=== PATIENT | male | born 1960 | race Caucasian/White ===

== ENCOUNTER 2018-06-27 13:52 | Inpatient (IN) ==
--- NOTE | 2018-06-26 22:01 | Discharge Summary ---
Date of Encounter: 06/28/18 Time of Encounter: 13:39 - Discharge Diagnosis (1) Mechanical loosening of internal left knee prosthetic joint Priority: Primary Status: Acute Qualifiers: Encounter type: initial encounter Qualified Code(s): T84.033A - Mechanical loosening of internal left knee prosthetic joint, initial encounter (2) Status post revision of total replacement of left knee Priority: Primary Status: Acute (3) CAD (coronary artery disease) Priority: Secondary Status: Chronic Qualifiers: Coronary Disease-Associated Artery/Lesion type: [place] artery [place] vs. transplanted heart: [place] heart Associated angina: without angina Qualified Code(s): I25.10 - Atherosclerotic heart disease of [place] coronary artery without angina pectoris (4) HTN (hypertension) Priority: Secondary Status: Chronic Qualifiers: Hypertension type: essential hypertension Qualified Code(s): I10 - Essential (primary) hypertension (5) HLD (hyperlipidemia) Priority: Secondary Status: Chronic Qualifiers: Hyperlipidemia type: mixed hyperlipidemia Qualified Code(s): E78.2 - Mixed hyperlipidemia (6) NIK (obstructive sleep apnea) Priority: Secondary Status: Chronic (7) Smoker Priority: Secondary Status: Chronic (8) Chronic pain Priority: Secondary Status: Chronic Comments: Continue Morphine pump, will plan to taper off pain medication appropriately Qualifiers: Chronic pain type: other chronic pain Qualified Code(s): G89.29 - Other chronic pain - Hospital Course Hospital course: Mr. Palmer is a 58 year old male ~status post Left TKR Revision - NO KNEE ROM, CATRACHO IN PLACE, TSCOPE IN PLACE - with a history of cad, HTN, HLD, NIK, SMOKER , CHRONIC PAIN (Morphine Pump_ . Patient had uneventful postoperative course. Stable for discharge. Patient seen at bedside, without complaints. A&O x 3 Afebrile, vital signs stable. Vital Signs Temp Pulse Resp BP Pulse Ox 06/28/18 12:38 99.3 F 92 18 117/71 93 06/28/18 06:38 97.6 F 93 18 107/63 92 06/28/18 04:00 98.1 F 94 16 125/72 91 06/28/18 01:30 98.8 F 76 12 122/76 96 06/28/18 00:37 98.0 F 105 16 112/61 92 06/28/18 00:30 98.5 F 90 16 125/72 95 06/27/18 23:30 98.4 F 14 18 114/76 98 06/27/18 23:00 98.2 F 78 16 120/88 96 06/27/18 22:33 97.9 F 96 16 118/72 93 06/27/18 22:30 97.9 F 88 16 112/61 96 06/27/18 22:08 98.6 F 103 16 116/73 93 06/27/18 21:25 98.7 F 90 16 101/62 93 06/27/18 21:15 98.1 F 90 16 105/63 92 06/27/18 21:05 98.1 F 87 16 108/85 93 06/27/18 20:55 86 16 114/69 93 06/27/18 20:45 98.4 F 75 16 102/64 94 06/27/18 20:35 80 16 103/62 93 06/27/18 20:25 82 16 112/69 96 06/27/18 20:15 98.4 F 79 16 125/69 92 06/27/18 20:05 79 16 119/69 93 06/27/18 19:55 73 16 115/67 95 06/27/18 19:45 98.4 F 75 16 116/68 94 06/27/18 19:35 79 18 117/64 94 06/27/18 19:25 85 18 114/104 94 06/27/18 19:15 97.3 F L 75 18 104/64 98 06/27/18 17:08 77 16 101/62 96 06/27/18 16:58 76 16 105/65 95 06/27/18 16:49 78 16 107/68 97 06/27/18 16:45 78 16 115/69 97 06/27/18 16:40 77 16 125/77 100 06/27/18 16:32 81 15 124/70 98 06/27/18 16:26 75 15 118/68 98 06/27/18 14:23 97.7 F 83 18 117/70 95 Intake and Output 06/27/18 06/28/18 06/28/18 23:59 07:59 15:59 Intake Total 100 / 100 Output Total 200 / 200 Balance -200 / -200 100 / 100 Intake: IV Fluids 100 / 100 Ancef 2,000 MG In 0.9 % Sodium 100 / 100 Chloride 100 ML @ 200 mls/hr IVPB Q8H [facility] Rx#:[id number] Output: Estimated Blood Loss 200 / 200 Other: Weight 95.1 kg Patient Weight 06/28/18 23:59 Weight 95.1 kg *Patient noted to have 99.3 temperature, he is not doing his IS. This was encouraged, otherwise asymptomatic. Labs reviewed. H/H - stable, asymptomatic Abnormal Labs, Last 24 hours 06/28/18 01:59 Sodium 135 L Glucose 262 H Pain control: adequate - Narcotic taper discussed in depth with patient, he is still using his Morhpine pump and will be tapered down appropriately. Utilizing Soma as well, as patient does not tolerate Cyclobenaprine. Participating in PT.~ All questions and concerns addressed. Educated on use of incentive spirometer. Encouraged ambulation and proper hydration.~ Patient educated on post-operative restrictions and post-operative care.~ Assessment and plan: Continue with postoperative care Discharge plan: Home , discharge today with Home Health. - Time Spent with Patient Total time spent providing and/or coordinating discharge services: - Discharge Medications Home Medications: Aspirin Enteric Coated [Aspirin EC] 325 mg PO BID #20 tablet. 06/26/18 [Rx] OxyCODONE Immed Rel [Roxicodone 5 MG] 5 mg PO Q6HR PRN 7 Days #28 tablet [Rx] Cetirizine HCl [Zyrtec] 10 mg PO DAILY 06/27/18 [History] Cholecalciferol (D-3) [Vitamin D] 1,000 unit PO DAILY 06/27/18 [History] Folic Acid 1 mg PO DAILY 06/27/18 [History] Lisinopril [Zestril] 5 mg PO DAILY 06/27/18 [History] Metoprolol Tartrate [Lopressor] 25 mg PO BID 06/27/18 [History] Pravastatin Sodium [Pravachol] 20 mg PO DAILY 06/27/18 [History] Ranitidine HCl [Heartburn Relief] 150 mg PO BID 06/27/18 [History] Sildenafil Citrate [Viagra] 100 mg PO PRN PRN 06/27/18 [History] Trazodone HCl 150 mg PO DAILY 06/27/18 [History] Allergies/Adverse Reactions: 3 Allergy/AdvReac Type Severity Reaction Status Date / Time amiodarone Allergy Anaphylaxis Verified 06/21/18 13:27 gabapentin AdvReac Anxiety Verified 06/21/18 13:27 topiramate AdvReac Nausea Verified 06/21/18 13:27 venlafaxine AdvReac Weakness Verified 06/21/18 13:27 Date of admission: 06/27 Primary care physician: PCP [place] Discharging clinician: Zoe Cervantes Anticipated date of discharge: 06/28/18 - Patient Status Disposition: Home Health Service Condition: Good Functional capacity at discharge: uses cane/walker Overall status at discharge: patient is back to baseline - Discharge Instructions Instructions: Total Knee Replacement (DC), Total Knee Replacement, Roundhouse Supervisor (GEN) [facility] [[facility] Care Provider[facility] - - Diet and Activity Activity: as per physical therapy Diet: advance to your usual diet
--- NOTE | 2018-06-27 08:13 | Anesthesia Evaluation PreOp ---
Date of Encounter: 06/27/18 Time of Encounter: 14:51 - Past History Planned Operation: ROBOTIC LEFT TKA Cardiac History: NH, HTN, Hyperlipidemia, Cardiac Stent (X3 2012) Pulmonary History: Smoker, NIK Dx (CPAP) CNC OPERATOR History: Other (INSOMNIA, CHRONIC LOW BACK PAIN, IMPLANTED INTRATHECAL MORPHINE PUMP) Other Medical History: GERD (D) Anesthesia History: No Prior Anesthetic Complications, Past Anesthesia (left TKA , KECIA knee scopes, lumbar discectomy, bakeres cyst right knee) Medications and Allergies Aspirin Enteric Coated [Aspirin EC] 325 mg PO BID #20 tablet. 06/26/18 [Rx] OxyCODONE Immed Rel [Roxicodone 5 MG] 5 mg PO Q6HR PRN 7 Days #28 tablet [Rx] 3 Allergy/AdvReac Type Severity Reaction Status Date / Time amiodarone Allergy Anaphylaxis Verified 06/21/18 13:27 gabapentin AdvReac Anxiety Verified 06/21/18 13:27 topiramate AdvReac Nausea Verified 06/21/18 13:27 venlafaxine AdvReac Weakness Verified 06/21/18 13:27 - Meds/Allergy Pre-op Review Medications Reviewed: Yes Allergies Reviewed: Yes Beta Blockers on Current Med List: Yes If Beta Blockers taken, Date/Time (Last Dose taken): 0900 Anesthesia Results - Labs Laboratory Last Values WBC 9.6 K/mcL (4.3-11.1) 06/21/18 13:47 RBC 5.70 M/mcL (4.19-5.50) H 06/21/18 13:47 Hgb 17.4 g/dL (12.9-16.9) H 06/21/18 13:47 Hct 49.9 % (37.5-50.1) 06/21/18 13:47 MCV 87.5 fL (83.0-100.0) 06/21/18 13:47 MCH 30.5 pg (28.0-33.3) 06/21/18 13:47 MCHC 34.9 g/dL (31.6-35.5) 06/21/18 13:47 RDW 13.2 % (11.5-14.5) 06/21/18 13:47 Plt Count 153 K/mcL (140-400) 06/21/18 13:47 MPV 10.1 fL (9.4-12.4) 06/21/18 13:47 Immature Gran % 0.4 % (0-4) 06/21/18 13:47 Seg Neutrophils % 68.1 % 06/21/18 13:47 Lymphocytes % 20.9 % 06/21/18 13:47 Monocytes % 8.4 % 06/21/18 13:47 Eosinophils % 1.8 % 06/21/18 13:47 Basophils % 0.4 % 06/21/18 13:47 Neutrophils # 6.5 K/mcL (1.6-8.9) 06/21/18 13:47 Lymphocytes # 2.0 K/mcL (0.6-4.6) 06/21/18 13:47 Monocytes # 0.8 K/mcL (0.0-1.3) 06/21/18 13:47 Eosinophils # 0.2 K/mcL (0.0-0.6) 06/21/18 13:47 Basophils # 0.0 K/mcL (0.0-0.2) 06/21/18 13:47 PT 11.3 Seconds (9.4-12.1) 06/21/18 13:47 INR 1.0 06/21/18 13:47 APTT 35.0 Seconds (26.0-36.0) 06/21/18 13:47 Sodium 137 mEq/L (136-145) 06/21/18 13:47 Potassium 4.2 mEq/L (3.5-5.1) 06/21/18 13:47 Chloride 103 mEq/L (98-107) 06/21/18 13:47 Carbon Dioxide 28 mEq/L (23-29) 06/21/18 13:47 BUN 11 mg/dL (6-20) 06/21/18 13:47 Creatinine 0.80 mg/dL (0.70-1.30) 06/21/18 13:47 Est GFR ( Amer) > 60 (> 60) 06/21/18 13:47 Est GFR (Non-Af Amer) > 60 (> 60) 06/21/18 13:47 BUN/Creatinine Ratio 14 (6-26) 06/21/18 13:47 - Imaging EKG: report reviewed (SINUS RHYTHM) Anesthesia Exam O2 Sat Height 1.78 m Height 1.78 m Weight 94.347 kg Weight 94.347 kg O2 Sat by Pulse Oximetry 95 Vital Signs Temp Pulse Resp BP Pulse Ox 97.7 F 83 18 117/70 95 06/27/18 14:23 06/27/18 14:23 06/27/18 14:23 06/27/18 14:23 06/27/18 14:23 NPO (# of Hours): 8 - HEENT Mallampati: II Teeth: Edentulous Oral Opening: Greater than 3 - Cardiac Rhythm: Regular - Pulmonary Breath Sounds: bilateral Clear Respiratory Effort: Symmetrical Anesthesia Assess/Plan ASA Score: 3 Modified Dennis Scale for Level of Consciousness: Cooperative, oriented, and tranquil Anesthetic Plan: General, Regional (FOR POST OPERATIVE PAIN CONTROL) Monitoring Plan: Standard Monitors Recovery Plan: PACU Anes Supervising Prov Stmt: [employer] LIST NOT UPDATED THIS VISIT PATIENT'S CHART AND CURRENT MEDICATIONS REVIEWED Patient informed and consented. Risks, benefits, and alternatives discussed. Patient wishes to proceed.
--- NOTE | 2018-06-27 14:06 | History & Physical Report ---
Date of Encounter: 06/27/18 Time of Encounter: 14:05 24 Hour HP Update - Instructions Instructions: If the History and Physical is less than 30 days old and was completed prior to A.M. admission and or procedure and has NOT been updated on calendar day of procedure please complete this update prior to performing procedure. - Update Patient reports changes in Medical Condition: No Changes in examination, assessment, or condition: No Changes in Medication: No Preop tests/diagnostics Reviewed: Yes Surgery Remains Indicated: Yes Consent for Planned Operative Procedure(s) Verified: Yes - Pre-Operative Checklist Preoperative Checklist Indicated: No Prophylactic Antibiotic Ordered: Yes Is VTE Prophylaxis Indicated?: Yes
[2018-06-27] MEDS ORDERED: Albuterol 2.5 MG/3 ML NEBULIZER IH ONE (14:21)
[2018-06-27] MEDS ORDERED: CeFAZolin Syr 2,000MG/20 ML 2,000 MG/20 ML SYRINGE IVPB ONE (14:21)
[2018-06-27] MEDS ORDERED: Ringers Solution, Lactated 1,000 ML IVC SCH ×2 (14:30→22:09)
[2018-06-27] MEDS ORDERED: Albuterol 2.5 MG/3 ML NEBULIZER ONE (14:34)
[2018-06-27] MEDS ORDERED: Acetaminophen IV 500 MG/50 ML INFUS..BTL IVPB ONE (14:49)
[2018-06-27] MEDS ORDERED: *HR* HYDROmorphone 2 MG TABLET PO ONE (14:49)
--- NOTE | 2018-06-27 14:53 | Physician Discharge Referral ---
Home Health/Hosp Referral Info Transfer to: Home Health Attending Provider: Provider in Charge Post Discharge: PCP - Diagnosis (1) Mechanical loosening of internal left knee prosthetic joint Priority: Primary Status: Acute (2) Status post revision of total replacement of left knee Priority: Primary Status: Acute (3) CAD (coronary artery disease) Status: Chronic (4) HTN (hypertension) Status: Chronic (5) HLD (hyperlipidemia) Status: Chronic (6) NIK (obstructive sleep apnea) Status: Chronic (7) Smoker Status: Chronic (8) Chronic pain Status: Chronic - Respiratory Orders None Smoking Cessation: Smoking cessation has been advised. For more information, call the [place] Tobacco Quit Line at 2-197-FLEW-NOW. - Diet/Nutrition Diet/Nutrition Orders: Regular - Activity Activity Orders: Up ad milly, Ambulate, Chair, Walker - Services Needed Following services are medically necessary services: Nursing, Home Health Aide, Physical Therapy, Occupational Therapy Home Care Orders: Opsite dressing, leave intact until first post-operative visit. If dressing becomes >50% saturated, contact office, remove dressing and place appropriate dressing in its place. Do not allow for dressing to get wet. Zipline/Sinclair in place, plan to remove at post-operative day #14-16. Total Joint Precautions x 6 weeks Apply cold therapy wrap 3-6x/day for 20 minutes at a time. Encourage ambulation throughout the day Use Incentive spirometer 10x/hour. Elevate affected extremity above heart as tolerated. Brace: Tscope in place 4-6 weeks. OK to remove to shower and cleanse leg daily. PT: No Knee ROM. WBAT. OK to remove brace when resting. - Transfer Medications Home Medications: Aspirin Enteric Coated [Aspirin EC] 325 mg PO BID #20 tablet. 06/26/18 [Rx] OxyCODONE Immed Rel [Roxicodone 5 MG] 5 mg PO Q6HR PRN 7 Days #28 tablet [Rx] Cetirizine HCl [Zyrtec] 10 mg PO DAILY 06/27/18 [History] Cholecalciferol (D-3) [Vitamin D] 1,000 unit PO DAILY 06/27/18 [History] Folic Acid 1 mg PO DAILY 06/27/18 [History] Lisinopril [Zestril] 5 mg PO DAILY 06/27/18 [History] Metoprolol Tartrate [Lopressor] 25 mg PO BID 06/27/18 [History] Pravastatin Sodium [Pravachol] 20 mg PO DAILY 06/27/18 [History] Ranitidine HCl [Heartburn Relief] 150 mg PO BID 06/27/18 [History] Sildenafil Citrate [Viagra] 100 mg PO PRN PRN 06/27/18 [History] Trazodone HCl 150 mg PO DAILY 06/27/18 [History] Allergies/Adverse Reactions: 3 Allergy/AdvReac Type Severity Reaction Status Date / Time amiodarone Allergy Anaphylaxis Verified 06/21/18 13:27 gabapentin AdvReac Anxiety Verified 06/21/18 13:27 topiramate AdvReac Nausea Verified 06/21/18 13:27 venlafaxine AdvReac Weakness Verified 06/21/18 13:27 Certification: Further, I certify that my clinical findings support that this patient is homebound (i.e. absences from home require considerable and taxing effort and are for medical reasons or religion services or infrequently or short duration when for other reasons) because: Homebound Reason: Post-surgery restriction and or conditions limit ability to leave home Attestation: My signature below is to certify that this patient is under my care and that I, or nurse practitioner, or a physician's assistant professor of forestry working with me, has a face-to -face encounter with this patient.
[2018-06-27] MEDS ORDERED: *HR* Midazolam HCl 2 MG/2 ML VIAL ONE (16:34)
[2018-06-27] MEDS ORDERED: *HR* FentaNYL (PF) 100 MCG/2 ML VIAL ONE ×2 (16:34→18:08)
[2018-06-27] MEDS ORDERED: ROPIVACAINE HCL/PF 0.5% 30 ML VIAL ONE (16:35)
[2018-06-27] MEDS ORDERED: Water for inj (bacteriostatic) 30 ML VIAL IV ONE (16:37)
[2018-06-27] MEDS ORDERED: Ethanol\\Acetic Acid\\Na Ace\\Ben 1,000 ML IRRIG.SOLN IR ONE (16:48)
[2018-06-27] MEDS ORDERED: *HR* Propofol 200 MG/20 ML VIAL IVP ONE ×2 (16:48→16:58)
[2018-06-27] MEDS ORDERED: Dexamethasone 4 MG/ML VIAL ONE (16:50)
[2018-06-27] MEDS ORDERED: Ondansetron 4 MG/2 ML VIAL ONE (16:50)
[2018-06-27] MEDS ORDERED: Lidocaine -MPF 2% 2 ML VIAL ONE ×2 (16:50→17:00)
--- NOTE | 2018-06-27 16:59 | Anesthesia Procedures ---
Date of Encounter: 06/27/18 Time of Encounter: 16:46 Procedures: Anesthesia - Nerve Block Procedure Date: 06/27/18 Time: 16:46 Surgical Procedure: left total knee revision Checklist: Correct Patient Identifier, Correct procedure, History checked Correct side: Left Blood Thinner: No Monitor Applied: BP, Pulse Oximetry Sedation: Versed (mg): 2 Sedation: Fentanyl (mcg): 100 Indication: Post Op Analgesia Block Type: Femoral, Other (ipack) Catheter placed: No Sterile Technique: Yes Ultrasound used: Yes Anatomy identified: Yes Visual spread of Local: Yes Neuro Stimulation: No Blood on Needle Aspiration: No Smooth Injection of Local: Yes Pain with Injection of Local: Yes Prep: Chlorhexadine Needle: 22 x 50 mm Stimuplex Local: Ropivacaine (0.25% rop used. ), Other (4mg decadron on femoral, 23ml on femoral and 30ml for ipack. ) Volume (cc): 53 Number of Attempts: 1 Complications: None/effective block Vitals: vss though out procedure, block per request of surgeon.
[2018-06-27] MEDS ORDERED: KETAMINE HCL 50 MG/ML SYRINGE IV ONE (17:01)
[2018-06-27] MEDS ORDERED: *HR* PHENYLEPHRINE 1,000 MCG/10 ML SYRINGE IVP ONE (17:22)
[2018-06-27] MEDS ORDERED: *HR* Phenylephrine 10 MG/ML VIAL ONE (17:35)
[2018-06-27] MEDS ORDERED: *HR* Labetalol 20 MG/4 ML SYRINGE IVP PRN (17:49)
[2018-06-27] MEDS ORDERED: *HR* OxyCODONE Immed Rel 5 MG TABLET PO PRN (17:49)
[2018-06-27] MEDS ORDERED: *HR* Promethazine 25 MG/ML VIAL IVP PRN (17:49)
[2018-06-27] MEDS ORDERED: *HR* Enoxaparin 30 MG/0.3 ML SYRINGE SQ SCH (18:00)
[2018-06-27] MEDS ORDERED: Ketorolac 30 MG/ML VIAL ONE (18:52)
--- NOTE | 2018-06-27 18:53 | Orthopedic Operative Note ---
Date of procedure: 06/27/18 Pre-op diagnosis: Aseptic loosening/unstable left total knee Post-op diagnosis: same Procedure: Procedure: Left revision robotic-assisted Total knee replacement Estimated blood loss: 300 cc Hardware: Metal and polyethylene replacement. Avis Femur: 3 revision femur 16 x 150 stem Tibia: 4 tibia with a 14 x 100 stem TS insert: 19 Exam Under anesthesia: 8 of hyperextension 1 of valgus as calculated by the robot full flexion and significant varus valgus instability Procedural Notes: Significant varus valgus instability as well as loose femoral component and tibial components. Operative procedure: The patient was brought to the operating room and placed on the operating room table. After general anesthesia was administered the operative knee was examined. Findings were noted in the exam under anesthesia. The operative extremity was prepped and draped in sterile surgical fashion. The patient received IV antibiotics prior to skin incision. A standard midline incision was made centered over the patella through the old incision. The incision was made through the skin and subcutaneous tissue. A medial parapatellar tendon approach was performed. Care was taken to preserve tissue along the medial aspect of the patella. And to protect the patella tendon. The deep MCL was released off the medial tibia. The infra patella fat pad was excised. Cultures were obtained at this point The patella was everted evaluation of the patella revealed no abnormalities and it was well fixed. Knee was brought into flexion. Steinmann pins were placed in the tibia and the femur for the tibial and femoral arrays respectively. Checkpoints were also placed in the tibia and the femur for calculation purposes. The knee including the femur and the tibial registered. At this point the poly-was removed as well as the components without significant bone loss. The femur would require a stem and was changed to the revision femoral component plan. The box cut was performed after the size 3 finishing guide was seated. The femur was reamed up to a 16 x 150. Trial had good fit and fixation. The tibia was subluxed forward sized to size 4 was reamed up to a 14 x 100 stem, and the fin cutter was seated. Trial reduction with the 19 TS Ladonna revealed extension of 0 degree and 0 degree varus valgus full flexion. No varus valgus instability. Trial reduction revealed excellent patella tracking. All trial components were removed all bony surfaces were irrigated. The Tibia was seated followed by the femur, The Ladonna size 19 was seated Patient had similar findings for motion and stability. The knee was closed by the PA. The knee was then irrigated out with 2 L of pulse irrigation. The extensor mechanism was closed with #2 PDS suture. The subcutaneous tissue was then irrigated and closed deep with #1 PDS suture superficially with 0 PDS suture and skin was closed with skin raysa zip tie The patient was then placed in a sterile dressing and a postoperative brace extubated and transferred to recovery room in stable condition. Anesthesia: GETA Surgeon: Jourdan Gupta Was there an mail handler assistant present: No Estimated blood loss (cc): 300 Condition: stable Disposition: PACU
[2018-06-27] MEDS: *HR* HYDROmorphone (PF) 1 MG/ML SYRINGE IVP PRN ×4 (19:55→21:05)
[2018-06-27 20:00] LABS: Hematocrit 44.2 % (37.5-50.1); Hemoglobin 15.5 g/dL (12.9-16.9)
--- NOTE | 2018-06-27 20:48 | Anesthesia Evaluation Post Op ---
Date of Encounter: 06/27/18 Time of Encounter: 20:48 - Vital Signs Vital Signs: Vital Signs/O2 Sat, Most Current Temp Pulse Resp BP Pulse Ox 98.4 F 80 16 103/62 93 06/27/18 20:15 06/27/18 20:35 06/27/18 20:35 06/27/18 20:35 06/27/18 20:35 - Lungs Lungs: Clear Ascult./Percussion - Airway Airway: Non-obstructed - Cardiovascular Regular Rate - Mental Status Mental Status: Alert & Oriented, Answers Appropriately - Pain Pain Scale: 4 Pain Scale used: Numeric (1 - 10) - Nausea Vomiting Nausea Vomiting: Not Present - Hydration Hydration: Ice chips - Discharge PostOp Status: Transfer Patient to floor
[2018-06-27] MEDS ORDERED: Ondansetron 4 MG/2 ML VIAL IVP PRN (22:09)
[2018-06-27] MEDS ORDERED: traMADol 50 MG TABLET PO PRN (22:09)
[2018-06-27] MEDS ORDERED: MOM Conc 10 ML UD.LIQ PO PRN (22:09)
[2018-06-27] MEDS ORDERED: *HR* OxyCODONE/APAP 5/325 TABLET PO PRN (22:09)
[2018-06-27] MEDS ORDERED: Sennosides 8.6 MG TABLET PO PRN (22:09)
[2018-06-27] MEDS ORDERED: Temazepam 15 MG CAPSULE PO PRN (22:09)
[2018-06-27] MEDS ORDERED: Naloxone 0.4 MG/ML INJ IVP PRN (22:09)
[2018-06-27] MEDS ORDERED: NON-FORMULARY MEDICATION 1 EACH EACH (Sildenafil Citrate [Viagra] 100 MG) PO PRN (22:09)
[2018-06-28] MEDS: Famotidine 20 MG TABLET PO SCH ×2 (00:36→09:15)
[2018-06-28] MEDS: *HR* OxyCODONE Immed Rel 5 MG TABLET PO PRN ×4 (01:05→15:00)
[2018-06-28 02:24] LABS: Hematocrit 40.3 % (37.5-50.1); Hemoglobin 14.5 g/dL (12.9-16.9)
[2018-06-28 02:41] LABS: BUN/Creatinine Ratio 18 (6-26); Blood Urea Nitrogen 17 mg/dL (6-20); Calcium 8.8 mg/dL (8.6-10.3); Carbon Dioxide 25 mEq/L (23-29); Chloride 102 mEq/L (98-107); Glucose 262 mg/dL (70-105); Osmolality,Calculated 291 (280-300); Potassium 4.2 mEq/L (3.5-5.1); Sodium 135 mEq/L (136-145); eGFR For Non-African Americans > 60 (> 60)
[2018-06-28] MEDS ORDERED: *HR* Enoxaparin 30 MG/0.3 ML SYRINGE SQ SCH (06:00)
--- NOTE | 2018-06-28 08:21 | Orthopedics Progress Note ---
Date of Encounter: 06/28/18 Time of Encounter: 08:21 Subjective Interval history: Patient was seen this morning doing well without complaints. Afebrile vital signs stable. Operative extremity: Neurovascularly intact Dressing clean dry and intact Calves nontender Assessment and plan: Continue with postoperative care Hematocrit 40 Objective Vital signs: Vital Signs Temp Pulse Resp BP Pulse Ox 06/28/18 06:38 97.6 F 93 18 107/63 92 06/28/18 04:00 98.1 F 94 16 125/72 91 06/28/18 01:30 98.8 F 76 12 122/76 96 06/28/18 00:37 98.0 F 105 16 112/61 92 06/28/18 00:30 98.5 F 90 16 125/72 95 06/27/18 23:30 98.4 F 14 18 114/76 98 06/27/18 23:00 98.2 F 78 16 120/88 96 06/27/18 22:33 97.9 F 96 16 118/72 93 06/27/18 22:30 97.9 F 88 16 112/61 96 06/27/18 22:08 98.6 F 103 16 116/73 93 06/27/18 21:25 98.7 F 90 16 101/62 93 06/27/18 21:15 98.1 F 90 16 105/63 92 06/27/18 21:05 98.1 F 87 16 108/85 93 06/27/18 20:55 86 16 114/69 93 06/27/18 20:45 98.4 F 75 16 102/64 94 06/27/18 20:35 80 16 103/62 93 06/27/18 20:25 82 16 112/69 96 06/27/18 20:15 98.4 F 79 16 125/69 92 06/27/18 20:05 79 16 119/69 93 06/27/18 19:55 73 16 115/67 95 06/27/18 19:45 98.4 F 75 16 116/68 94 06/27/18 19:35 79 18 117/64 94 06/27/18 19:25 85 18 114/104 94 06/27/18 19:15 97.3 F L 75 18 104/64 98 06/27/18 17:08 77 16 101/62 96 06/27/18 16:58 76 16 105/65 95 06/27/18 16:49 78 16 107/68 97 06/27/18 16:45 78 16 115/69 97 06/27/18 16:40 77 16 125/77 100 06/27/18 16:32 81 15 124/70 98 06/27/18 16:26 75 15 118/68 98 06/27/18 14:23 97.7 F 83 18 117/70 95 Intake and Output 06/27/18 06/28/18 06/28/18 23:59 07:59 15:59 Intake Total 100 / 100 Output Total 200 / 200 Balance -200 / -200 100 / 100 Intake: IV Fluids 100 / 100 Ancef 2,000 MG In 0.9 % Sodium 100 / 100 Chloride 100 ML @ 200 mls/hr IVPB Q8H [facility] Rx#:[id number] Output: Estimated Blood Loss 200 / 200 Other: Weight 95.1 kg Patient Weight 06/28/18 23:59 Weight 95.1 kg - Labs CBC & BMP: 06/28/18 01:59 06/28/18 01:59 Labs: Abnormal lab results Sodium 135 mEq/L (136-145) L 06/28/18 01:59 Glucose 262 mg/dL (70-105) H 06/28/18 01:59 - VTE Documentation of Mechanical Device: Venous foot pump, device Consult Discharge Plan - Plan [facility]errals: [facility] [Primary Care Provider[facility] -
[2018-06-28] MEDS ORDERED: Cholecalciferol (D-3) 1,000 UNIT TABLET PO SCH ×2 (09:00→21:00)
[2018-06-28] MEDS ORDERED: Aspirin Enteric Coated 81 MG Tablet PO SCH (09:00)
[2018-06-28] MEDS ORDERED: traZODone 50 MG TABLET PO SCH ×2 (09:00→21:00)
[2018-06-28] MEDS ORDERED: Folic Acid 1 MG TABLET PO SCH ×2 (09:00→21:00)
[2018-06-28] MEDS ORDERED: Loratadine 10 MG TABLET PO SCH (09:00)
[2018-06-28] MEDS ORDERED: Carisoprodol 350 MG TABLET PO SCH (15:00)
[2018-06-28 15:32] VITALS: BP 130/67
== END 2018-06-28 16:49 | disposition home health service (06) | DRG 468 ==
LOC: SAMDAY 13:52 → 3NENU 22:07
PROVIDERS: ADMIT Orthopaedic Surgery; ATTEND Orthopaedic Surgery

== ENCOUNTER 2020-05-31 14:18 | Inpatient (IN) ==
[2020-05-31] MEDS ORDERED: 0.9 % Sodium Chloride 1,000 ML IVC ONE (14:22)
[2020-05-31 14:59] LABS: Basophils % 0.1 %; Hematocrit 50.7 % (37.5-50.1); Hemoglobin 17.7 g/dL (12.9-16.9); Immature Granulocytes % 0.8 % (0-4); Lymphocytes # 0.9 K/mcL (0.6-4.6); Lymphocytes % 4.5 %; Mean Corpuscular HGB Conc 34.9 g/dL (31.6-35.5); Mean Corpuscular Hemoglobin 29.9 pg (28.0-33.3); Mean Corpuscular Volume 85.8 fL (83.0-100.0); Mean Platelet Volume 9.7 fL (9.4-12.4); Monocytes # 1.6 K/mcL (0.0-1.3); Neutrophils # 16.9 K/mcL (1.6-8.9); Platelet Count 153 K/mcL (140-400); Red Blood Count 5.91 M/mcL (4.19-5.50); Red Cell Distribution Width 13.2 % (11.5-14.5); Segmented Neutrophils % 86.6 %; White Blood Count 19.5 K/mcL (4.3-11.1)
[2020-05-31 15:10] LABS: Alanine Aminotransferase 10 Units/L (7-52); Albumin 4.5 g/dL (3.5-5.7); Albumin/Globulin Ratio 1.4 (1.1-2.2); Alkaline Phosphatase 111 Units/L (34-104); Aspartate Amino Transferase 13 Units/L (13-39); BUN/Creatinine Ratio 18 (6-26); Bilirubin,Total 1.2 mg/dL (0.3-1.0); Blood Urea Nitrogen 17 mg/dL (8-23); Calcium 10.3 mg/dL (8.6-10.3); Carbon Dioxide 25 mEq/L (23-29); Chloride 102 mEq/L (98-107); Globulin 3.2 g/dL (2.4-3.5); Glucose 151 mg/dL (70-105); Lipase 8 Units/L (11-82); Osmolality,Calculated 290 (280-300); Potassium 3.5 mEq/L (3.5-5.1); Sodium 138 mEq/L (136-145); Total Protein 7.7 g/dL (6.4-8.9); Troponin I < 0.03 ng/mL (< 0.04); eGFR For African Americans > 60 (> 60); eGFR For Non-African Americans > 60 (> 60)
[2020-05-31] MEDS ORDERED: Morphine Sulfate 2 MG/ML SYRINGE IVP ONE (15:56)
[2020-05-31] MEDS ORDERED: Ondansetron 4 MG/2 ML VIAL IVP PRN (16:15)
[2020-05-31] MEDS ORDERED: 0.9 % Sodium Chloride 1,000 ML IVC SCH (16:15)
[2020-05-31 16:58] LABS: INR 1.2; Prothrombin Time 13.4 Seconds (9.4-12.1)
[2020-05-31] MEDS ORDERED: Piperacillin/Tazobactam 3.375 GM in 0.9 % Sodium Chloride Mini Bag 100 ML IVPB SCH (17:00)
[2020-05-31 17:01] LABS: Activated Partial Thrombo Time 30.4 Seconds (26.0-36.0)
[2020-05-31] MEDS ORDERED: *HR* Propofol 200 MG/20 ML VIAL IVP ONE (17:38)
[2020-05-31] MEDS ORDERED: *HR* FentaNYL (PF) 100 MCG/2 ML VIAL ONE ×2 (17:38→22:47)
[2020-05-31] MEDS ORDERED: *HR* Midazolam HCl 2 MG/2 ML VIAL ONE (17:38)
[2020-05-31] MEDS ORDERED: Dexamethasone 4 MG/ML VIAL ONE (17:39)
[2020-05-31] MEDS ORDERED: Ondansetron 4 MG/2 ML VIAL ONE (17:39)
[2020-05-31] MEDS ORDERED: *HR* Rocuronium Bromide 50 MG/5 ML VIAL ONE (17:39)
[2020-05-31] MEDS ORDERED: Lidocaine -MPF 2% 2 ML VIAL ONE (17:39)
[2020-05-31] MEDS ORDERED: *HR* Succinylcholine 200 MG/10 ML VIAL IVP ONE (17:39)
[2020-05-31] MEDS ORDERED: Lidocaine HCL 4 ML Topical Solution (Laryng-O-Jet Kit Sterile Pak) TP ONE (17:39)
[2020-05-31] MEDS ORDERED: Bupivacaine/EPI 1:200k 0.25%PF 30 ML VIAL ONE (17:57)
[2020-05-31] MEDS ORDERED: *HR* Meperidine 25 MG/ML SYRINGE IVP PRN (19:12)
[2020-05-31] MEDS ORDERED: Ondansetron 4 MG/2 ML VIAL IVP ONE (19:12)
[2020-05-31] MEDS ORDERED: *HR* HYDROmorphone PF 0.5 MG/0.5 ML SYRINGE IVP PRN (19:12)
[2020-05-31] MEDS ORDERED: *HR* Promethazine 25 MG/ML VIAL IVP PRN (19:12)
[2020-05-31] MEDS ORDERED: Acetaminophen IV 1,000 MG/100 ML INFUS..BTL IVPB ONE (21:15)
[2020-05-31] MEDS ORDERED: Acetaminophen IV 1,000 MG/100 ML INFUS..BTL ONE (21:16)
[2020-06-01] MEDS ORDERED: Ringers Solution, Lactated 1,000 ML ONE (00:02)
[2020-06-01] MEDS ORDERED: Ondansetron 4 MG/2 ML VIAL IVP PRN (00:32)
[2020-06-01] MEDS: 0.9 % Sodium Chloride 1,000 ML IVC SCH ×3 (00:49→20:13)
[2020-06-01] MEDS: Ketorolac 30 MG/ML VIAL IVP SCH ×4 (00:49→17:13)
[2020-06-01] MEDS: Acetaminophen IV 1,000 MG/100 ML INFUS..BTL IVPB SCH ×4 (03:25→20:07)
[2020-06-01] MEDS: Piperacillin/Tazobactam 3.375 GM in 0.9 % Sodium Chloride Mini Bag 100 ML IVPB SCH ×3 (03:48→18:32)
[2020-06-01] MEDS: *HR* Heparin 5,000 UNIT/ML VIAL SQ SCH ×2 (06:10→17:14)
[2020-06-01] MEDS: Pantoprazole 40 MG VIAL IVP SCH (08:17)
[2020-06-01] MEDS: lisinopriL 10 MG TABLET PO SCH (08:17)
[2020-06-01] MEDS ORDERED: Pantoprazole 40 MG VIAL IVP SCH (09:00)
[2020-06-01 10:06] LABS: Basophils % 0.1 %; Hematocrit 44.1 % (37.5-50.1); Immature Granulocytes % 0.5 % (0-4); Lymphocytes # 0.8 K/mcL (0.6-4.6); Lymphocytes % 4.8 %; Mean Corpuscular Hemoglobin 29.8 pg (28.0-33.3); Mean Corpuscular Volume 87.7 fL (83.0-100.0); Mean Platelet Volume 10.1 fL (9.4-12.4); Monocytes # 1.2 K/mcL (0.0-1.3); Monocytes % 6.8 %; Platelet Count 136 K/mcL (140-400); Red Blood Count 5.03 M/mcL (4.19-5.50); Red Cell Distribution Width 13.5 % (11.5-14.5); Segmented Neutrophils % 87.8 %; White Blood Count 17.1 K/mcL (4.3-11.1)
[2020-06-01 10:22] LABS: BUN/Creatinine Ratio 24 (6-26); Blood Urea Nitrogen 18 mg/dL (8-23); Calcium 9.1 mg/dL (8.6-10.3); Carbon Dioxide 24 mEq/L (23-29); Chloride 110 mEq/L (98-107); Glucose 146 mg/dL (70-105); Osmolality,Calculated 295 (280-300); Sodium 140 mEq/L (136-145); eGFR For African Americans > 60 (> 60); eGFR For Non-African Americans > 60 (> 60)
[2020-06-01] MEDS: *HR* OxyCODONE Immed Rel 5 MG TABLET PO PRN ×2 (13:41→18:32)
[2020-06-01] MEDS: traZODone 50 MG TABLET PO SCH (20:08)
[2020-06-02] MEDS: 0.9 % Sodium Chloride 1,000 ML IVC SCH ×2 (00:21→07:57)
[2020-06-02] MEDS: Ketorolac 30 MG/ML VIAL IVP SCH ×4 (00:24→17:16)
[2020-06-02] MEDS: Acetaminophen IV 1,000 MG/100 ML INFUS..BTL IVPB SCH ×4 (03:39→20:54)
[2020-06-02] MEDS: Piperacillin/Tazobactam 3.375 GM in 0.9 % Sodium Chloride Mini Bag 100 ML IVPB SCH ×3 (03:41→18:06)
[2020-06-02 07:15] LABS: Basophils % 0.1 %; Eosinophils % 0.1 %; Hematocrit 35.3 % (37.5-50.1); Immature Granulocytes % 0.6 % (0-4); Lymphocytes # 1.5 K/mcL (0.6-4.6); Mean Corpuscular HGB Conc 33.1 g/dL (31.6-35.5); Mean Corpuscular Hemoglobin 29.4 pg (28.0-33.3); Mean Corpuscular Volume 88.7 fL (83.0-100.0); Mean Platelet Volume 10.1 fL (9.4-12.4); Monocytes # 0.9 K/mcL (0.0-1.3); Monocytes % 7.7 %; Platelet Count 103 K/mcL (140-400); Red Blood Count 3.98 M/mcL (4.19-5.50); Red Cell Distribution Width 13.2 % (11.5-14.5); Segmented Neutrophils % 78.5 %; White Blood Count 11.5 K/mcL (4.3-11.1)
[2020-06-02 07:17] LABS: Hemoglobin 11.7 g/dL (12.9-16.9)
[2020-06-02 07:34] LABS: BUN/Creatinine Ratio 27 (6-26); Blood Urea Nitrogen 22 mg/dL (8-23); Calcium 8.3 mg/dL (8.6-10.3); Carbon Dioxide 24 mEq/L (23-29); Chloride 110 mEq/L (98-107); Glucose 99 mg/dL (70-105); Osmolality,Calculated 291 (280-300); Potassium 3.5 mEq/L (3.5-5.1); Sodium 139 mEq/L (136-145); eGFR For African Americans > 60 (> 60); eGFR For Non-African Americans > 60 (> 60)
[2020-06-02] MEDS: *HR* Heparin 5,000 UNIT/ML VIAL SQ SCH ×2 (07:34→17:16)
[2020-06-02] MEDS: lisinopriL 10 MG TABLET PO SCH (07:37)
[2020-06-02] MEDS: Pantoprazole 40 MG VIAL IVP SCH (07:45)
[2020-06-02] MEDS: *HR* OxyCODONE Immed Rel 5 MG TABLET PO PRN ×3 (10:00→22:33)
[2020-06-02] MEDS: traZODone 50 MG TABLET PO SCH (20:54)
[2020-06-03] MEDS: Ketorolac 30 MG/ML VIAL IVP SCH ×3 (00:10→11:44)
[2020-06-03] MEDS: Piperacillin/Tazobactam 3.375 GM in 0.9 % Sodium Chloride Mini Bag 100 ML IVPB SCH ×2 (02:37→10:02)
[2020-06-03] MEDS: Acetaminophen IV 1,000 MG/100 ML INFUS..BTL IVPB SCH ×2 (02:53→07:36)
[2020-06-03] MEDS: *HR* Heparin 5,000 UNIT/ML VIAL SQ SCH (05:04)
[2020-06-03 06:59] LABS: Basophils % 0.3 %; Eosinophils # 0.1 K/mcL (0.0-0.6); Eosinophils % 1.5 %; Hematocrit 34.7 % (37.5-50.1); Hemoglobin 11.9 g/dL (12.9-16.9); Immature Granulocytes % 0.5 % (0-4); Lymphocytes # 1.2 K/mcL (0.6-4.6); Lymphocytes % 15.4 %; Mean Corpuscular HGB Conc 34.3 g/dL (31.6-35.5); Mean Corpuscular Hemoglobin 29.7 pg (28.0-33.3); Mean Corpuscular Volume 86.5 fL (83.0-100.0); Mean Platelet Volume 10.4 fL (9.4-12.4); Monocytes # 0.6 K/mcL (0.0-1.3); Monocytes % 8.5 %; Neutrophils # 5.5 K/mcL (1.6-8.9); Platelet Count 108 K/mcL (140-400); Red Blood Count 4.01 M/mcL (4.19-5.50); Red Cell Distribution Width 13.1 % (11.5-14.5); Segmented Neutrophils % 73.8 %; White Blood Count 7.5 K/mcL (4.3-11.1)
[2020-06-03 07:22] LABS: BUN/Creatinine Ratio 20 (6-26); Blood Urea Nitrogen 16 mg/dL (8-23); Calcium 8.6 mg/dL (8.6-10.3); Carbon Dioxide 21 mEq/L (23-29); Chloride 110 mEq/L (98-107); Glucose 94 mg/dL (70-105); Osmolality,Calculated 289 (280-300); Potassium 3.2 mEq/L (3.5-5.1); Sodium 139 mEq/L (136-145); eGFR For African Americans > 60 (> 60); eGFR For Non-African Americans > 60 (> 60)
[2020-06-03] MEDS: Pantoprazole 40 MG VIAL IVP SCH (07:36)
[2020-06-03] MEDS: lisinopriL 10 MG TABLET PO SCH (07:37)
[2020-06-03] MEDS: *HR* OxyCODONE Immed Rel 5 MG TABLET PO PRN ×2 (09:34→15:15)
[2020-06-03 10:40] VITALS: BP 147/76
== END 2020-06-03 16:30 | disposition home or self-care (01) | DRG 340 ==
LOC: EMEROOARM 14:18 → 3ANU 14:18
PROVIDERS: ADMIT Surgery; ATTEND Surgery